=== PATIENT | male | born 1985 | race American Indian/Alaskan Native ===

== ENCOUNTER 2019-02-27 16:46 | Emergency (ER) | payer SELFPAY ==
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
[2019-02-27] MEDS ORDERED: HYDROcodone/ACETAMINOPHEN 5-325 MG TAB PO ONE (21:54)
[2019-02-27] MEDS ORDERED: IBUPROFEN 800 MG TAB PO ONE (21:54)
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
[2019-02-27 23:33] VITALS: BP 118/78
== END 2019-02-27 23:34 | disposition home or self-care (01) ==
LOC: ED 16:46
DX: S82.51XA Displaced fracture of medial malleolus of right tibia, initial encounter for closed fracture (principal); F17.200 Nicotine dependence, unspecified, uncomplicated; X50.1XXA Overexertion from prolonged static or awkward postures, initial encounter; Y93.89 Activity, other specified; Y92.89 Other specified places as the place of occurrence of the external cause; Y99.8 Other external cause status

== ENCOUNTER 2020-07-04 15:17 | Emergency (ER) | payer SELFPAY ==
[2020-07-04 15:49] VITALS: BP 125/86
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
== END 2020-07-04 18:43 | disposition home or self-care (01) ==
LOC: ED 15:17
DX: S40.859A Superficial foreign body of unspecified upper arm, initial encounter (principal); M79.601 Pain in right arm; Z79.899 Other long term (current) drug therapy; Z98.890 Other specified postprocedural states; X58.XXXA Exposure to other specified factors, initial encounter; Y93.89 Activity, other specified; Y92.89 Other specified places as the place of occurrence of the external cause; Y99.8 Other external cause status